=== PATIENT | female | born 1965 | race Two or more races ===

== ENCOUNTER → 2018-08-20 | Outpatient (CLI) | payer SELFPAY ==
[~2018-08-20] VITALS: Ht 152.4 cm; Wt 62.1 kg
[~2018-08-20] MED LIST: FERR-89 PO; IBUP-2070 PO
[2018-08-20 11:52] VITALS: BP 124/87
== END | disposition home or self-care (01) ==
LOC: HBOWC 11:31
PROVIDERS: ATTEND Surgery Plastic and Reconstructive Surgery
DX: T81.89XS Other complications of procedures, not elsewhere classified, sequela (principal); S81.801D Unspecified open wound, right lower leg, subsequent encounter; I87.2 Venous insufficiency (chronic) (peripheral); Y83.8 Other surgical procedures as the cause of abnormal reaction of the patient, or of later complication, without mention of misadventure at the time of the procedure; X58.XXXD Exposure to other specified factors, subsequent encounter

== ENCOUNTER → 2018-09-17 | Outpatient (CLI) | payer SELFPAY ==
[2018-09-17 08:19] VITALS: BP 125/73
== END | disposition home or self-care (01) ==
LOC: HBOWC 07:13
PROVIDERS: ATTEND Surgery Plastic and Reconstructive Surgery
DX: S81.801D Unspecified open wound, right lower leg, subsequent encounter (principal); I87.2 Venous insufficiency (chronic) (peripheral); X58.XXXD Exposure to other specified factors, subsequent encounter; Y83.8 Other surgical procedures as the cause of abnormal reaction of the patient, or of later complication, without mention of misadventure at the time of the procedure
CPT/HCPCS: 11042

== ENCOUNTER → 2018-10-15 | Outpatient (CLI) | payer SELFPAY ==
[2018-10-15 08:05] VITALS: BP 124/76
== END | disposition home or self-care (01) ==
LOC: HBOWC 07:15
PROVIDERS: ATTEND Surgery Plastic and Reconstructive Surgery
DX: S81.801D Unspecified open wound, right lower leg, subsequent encounter (principal); I87.2 Venous insufficiency (chronic) (peripheral); X58.XXXD Exposure to other specified factors, subsequent encounter